=== PATIENT | female | born 2000 | race Caucasian/White ===

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

== ENCOUNTER 2021-07-07 08:49 | Emergency (ER) | payer OTHER ==
[~2021-07-07] VITALS: Ht 165.1 cm; Wt 54.1 kg
[~2021-07-07 08:49] MED LIST changes: +IBUP-1824 PO; -IBUP100S57 PO
[2021-07-07 09:07] VITALS: BP 126/77
== END 2021-07-07 10:10 | disposition left against medical advice (07) ==
LOC: M ED 08:49
DX: Z53.21 Procedure and treatment not carried out due to patient leaving prior to being seen by health care provider (principal)